=== PATIENT | male | born 1950 | race Caucasian/White ===

== ENCOUNTER 2020-11-21 15:01 | Emergency (ER) | payer OTHER, MEDICARE ==
[~2020-11-21] VITALS: Ht 170.2 cm; Wt 68.5 kg
--- NOTE | 2020-11-21 15:45 | NUR ---
ED Nurse Note: Patient presents to ED for monoclonal antibody infusion, was sent in by Dr. Vallejo. pt is c/o neck soreness, last took tylenol at 1200. Patient has strady gait, AAO x4, VSS at this time, skin is warm to touch
[2020-11-21 16:23] VITALS: BP 115/71
[2020-11-21] MEDS ORDERED: Regeneron EUA 2,400 MG in NS 255 ML IVPB SCH (16:45)
[2020-11-21] MEDS ORDERED: Regeneron EUA MISC ONE (16:45)
--- NOTE | 2020-11-21 16:47 | Emergency Room Report ---
History of Present Illness General Chief Complaint: Flu Like Symptoms Present Illness HPI 70-year-old male presents to the emergency department complaining of 4-10 severity body aches, neck soreness, fevers, cough and dyspnea of x3 days. Patient reports he had positive rapid Covid test today. Patient was sent to the emergency department by his collections clerk Dr. Vallejo. Patient reports he took Tylenol at noon. He denies chest pain or palpitations. He denies dizziness or syncope. Pt. with cardiovascular disease and BPH. no other aggravating or relieving factors at this time. Patient is currently taking aspirin, finasteride and mirabegron daily. 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 COVID-19 Screening: Positive COVID-19 COVID-19 Testing Source: today Patient History Past Medical History: see triage record Past Surgical History: none Pertinent Family History: none Reviewed Nursing Documentation: PMH: Agreed; PSxH: Agreed Nursing Documentation-PMH Hx Cardiac Problems: Yes Review of Systems All Other Systems: negative except mentioned in HPI Physical Exam Vital Signs Date Time Temp Pulse Resp B/P (MAP) Pulse Ox O2 Delivery O2 Flow Rate FiO2 11/21/20 15:37 97.9 64 18 115/71 (86) 95 Room Air Sp02 EP Interpretation: reviewed, normal General Appearance: no apparent distress, alert, GCS 15, non-toxic Head: normocephalic, atraumatic Eyes: bilateral eye normal inspection, bilateral eye PERRL ENT: hearing grossly normal, normal voice Neck: full range of motion, no meningismus Respiratory: chest non-tender, lungs clear, normal breath sounds, no resp iratory distress, no wheezing, speaking full sentences Cardiovascular #1: regular rate, rhythm, no edema, normal capillary refill Musculoskeletal: normal range of motion, gait/station normal, non-tender Neurologic: alert, motor strength/tone normal, oriented x3, sensory intact, responsive, speech normal Psychiatric: judgement/insight normal Skin: no rash, normal color, normal inspection Medical Decision Making PA Attestation Dr. Serrato is my supervising Physician whom patient management has been discussed with. Diagnostic Impression: Primary Impression: COVID-19 Additional Impression: Encounter to discuss treatment options ER Course 70-year-old male presents to the emergency department complaining of 4-10 severity body aches, neck soreness, fevers, cough and dyspnea of x3 days. Patient reports he had positive rapid Covid test today. Patient was sent to the emergency department by his collections clerk Dr. Vallejo. Patient reports he took Tylenol at noon. He denies chest pain or palpitations. He denies dizziness or syncope. Pt. with cardiovascular disease and BPH. no other aggravating or relieving factors at this time. Patient is currently taking aspirin, finasteride and mirabegron daily. Pt. Tested positive on : TODAY Ddx considered but are not limited to PNA, hypoxia, asthma exacerbation, COVID- 19, other viral URI, PE/ VT just to name a few. Vital signs: are WNL, pt. is afebrile H&PE are most consistent with: Stable Pt. Not in acute respiratory distress at this time. Pt. has good oxygen saturation. No evidence of increased respiratory effort. Appropriate for Outpatient conservative treatment for COVID-19. ORDERS: none required at this time, the diagnosis is clinical ED INTERVENTIONS: Regeneron - REGN-COV2 Infusion [ 1,200 mg of Casirivimab and 1,200 mg of Imdevimab administered together] - FDA EUA. - Reviewed/ d/w pt. the REGN-COV2 Infusion Drug fact sheet for patients who are considering receiving IV infusion. Pt. understands and is aware that this medication has authorization from the FDA for Emergency Use only, and is still undergoing full testing and monitoring before it can be fully authorized by the FDA. Pt. also understands that this medication is intended to reduce or prevent need for severe hospitalization and invasive interventions that are known to arise in high risk patients who are infected with the nCoV-2019. Pt. understands this is not a cure/treatment for full remission of COVID-19. Pt. educated and understands that the safety and effectiveness of the REGN-COV2 Infusion is limited at this time. The pt. is educated on possible side effects as well as possibility of severe side effects/reactions that may arise. Pt. is educated and aware that any fci effects arising from this FDA- EUA COVID-19 treatment is not known at this time. After education and chance to ask any questions or receive additional clarification, this patient has decided to move forward and receive the REGN- COV2 Infusion for COVID-19 under FDA emergency use authorization here in the Emergency Dept. Infusion is administered via IV over the duration of 1 hour. The patient is monitored and observed for any reactions to infusion that require acute medical intervention. The patient did not have any significant reactions during the 1 hour observation period following infusion. Pt. was given their own copy of the REGN-COV2 Infusion fact sheet to take home. DISCHARGE: At this time pt. is stable for d/c to home. Will provide printed patient care instructions, and any necessary prescriptions. Care plan and follow up instructions have been discussed with the patient prior to discharge. Last Vital Signs Date Time Temp Pulse Resp B/P (MAP) Pulse Ox O2 Delivery O2 Flow Rate FiO2 11/21/20 16:23 97.9 88 18 115/71 95 Room Air Disposition: HOME, SELF-CARE Condition: Stable Referrals: NON PHYSICIAN (PCP) Patient Instructions: Post-Injection Inflammatory Reaction Additional Instructions: Take any previously prescribed medications as directed. Watch for signs of adverse reactions to infusion and report them accordingly as described in Patient Fact Sheet for REGENERON Infusion that was provided to you. Follow up with a Primary Care Provider / collections clerk in 3-5 days, even if your symptoms have resolved. Return sooner to ED if new symptoms occur, or current symptoms become worse. - Please note that this Emergency Department Report was dictated using [employer] riveter technology software, occasionally this can lead to erroneous entry secondary to interpretation by the dictation equipment. Winsome Gardner Nov 21, 2020 16:47
[2020-11-21] MEDS ORDERED: ASPIRIN81 M3 PO (17:00)
[2020-11-21] MEDS ORDERED: MYRBETRIQ25 MG PO (17:00)
[2020-11-21] MEDS ORDERED: PROSCAR5 MG ORAL (17:00)
--- NOTE | 2020-11-21 19:12 | NUR ---
HAND-OFF: Report given to NASREEN Arvizu.
[2020-11-21 20:21] VITALS: BP 126/75
--- NOTE | 2020-11-21 20:21 | NUR ---
ER DISCHARGE NOTE: Patient is cleared to be discharged per ERMD, pt is aox4, on room air, with stable vital signs. pt was given dc , pt was able to verbalize understanding, pt id band and iv site removed without complications. pt is able to ambulate with steady gait. pt took all belongings.
== END 2020-11-21 20:21 | disposition home or self-care (01) ==
LOC: EMR 15:38
DX: U07.1 COVID-19 (principal); Z71.89 Other specified counseling; N40.0 Benign prostatic hyperplasia without lower urinary tract symptoms; I51.9 Heart disease, unspecified; Z79.899 Other long term (current) drug therapy
CPT/HCPCS: 96365; 99284; J7050; Q0243